=== PATIENT | female | born 1950 | race Caucasian/White ===

== ENCOUNTER 2024-07-26 10:33 | Emergency (ER) | payer OTHER, SELFPAY ==
[2024-07-26] VITALS (7 sets, daily range): BP systolic 118–165; BP diastolic 75–89; BMI 24.3
--- NOTE | 2024-07-26 11:30 | ED.GENMED ---
History of Present Illness
General
Chief Complaint: Heart Rate Problem
Source: patient
Time Seen by Provider: 07/26/24 11:15
History of Present Illness
History of Present Illness:
73yoF with no significant past medical history presenting with her for evaluation of malaise. Patient returned from a cruise to [facility] about 10 days ago. 2 days after returning home, she started to experience nausea,
vomiting, malaise, and a headache. She was seen by her PCP last week and had negative COVID testing. She was told that she likely had a viral illness. Her symptoms seemed to improve earlier this week but are now worse again. Last episode of
vomiting was 2 days ago. She continues to have a headache which she currently rates as a 5/10 in severity. Her main symptom is generalized malaise and fatigue. She has not been eating or drinking much due to her symptoms. She estimates that she
is lost about 9 pounds since her symptoms began. She was seen again by her PCP today. An EKG was performed in the office which reportedly showed atrial flutter and she was sent to the ED for evaluation. Patient denies any chest pain or shortness
of breath. No fevers throughout the duration of her symptoms.
Phy Exam
Physical Exam
Physical Exam:
Patient appears fatigued, non-toxic
General Physical Exam
General Presentation: well appearing and no apparent distress
General age: appears stated age
General Skin: warm and dry
General Habitus: normal
General Mental: alert
ENT Exam
ENT Exam: TM's normal, pharynx normal, neck supple and normocephalic
Additional ENT: No meningismus
Cardiovascular Exam
Cardiovascular Exam: tachycardia
Pulmonary Exam
Pulmonary Exam: lungs clear, no respiratory distress, no rales, no crackles, no rhonchi and no wheezing
Gastrointestinal Exam
Gastrointestinal Exam: non tender, soft and non distended
Cesar Coma Scale
Eye Opening: Spontaneous
Verbal Response: Oriented
Motor Response: Obeys Commands
GCS Total Score: 15
Skin Exam
Skin Exam: normal color and warm/dry
Psychiatric Exam
Psychiatric Exam: normal mood/affect
Course
Orders/Labs/Results
Orders:
Orders
07/26/24 10:34
EKG [Electrocardiogram (*1)] Urgent
Reason for Study: Atrial Flutter
EKG- Treatment ONCE
07/26/24 11:30
0.9% Sodium Chloride 1000 ml [Nss] 1,000 ml IV BOLUS
07/26/24 11:59
Complete Blood Count/With Diff Urgent
Comprehensive Metabolic Panel Urgent
Lyme Progressive Urgent
Magnesium Urgent
Monotest Urgent
Comment: LYME PROGRESSIVE & MONO ADDED ON BY FLOOR 2:50PM 07-26-24
TSH Reflex To Free T4 Urgent
Troponin I Urgent
Influenza A+B Rapid Molecular Urgent
ELBA Source: Nasal Swab
Specimen Description:
07/26/24 12:53
Urinalysis Reflex To Culture Urgent
Date Specimen was Collected: 07/26/24
Time Specimen was Collected: 12:46
07/26/24 13:30
CT Head W/o Iv Contrast Urgent
Comment:
Reason For Exam: Headache
CR Chest - 2 Views Urgent
Comment:
Reason For Exam: Fatigue
07/26/24 14:47
Acetaminophen 1000MG/100Ml [Ofirmev] 1,000 mg in 100 ml IV ONCE
Acetaminophen IV Indication:: ED Narcotic Naive Pt-ONCE
07/26/24 14:53
Add On- LAB Urgent
Comments:: specimen in lab; pt difficult stick.
Tests Added?: lyme progressive; mono
07/26/24 16:43
Dexamethasone [Decadron] 10 mg PO NOW STA
Abnormal Lab Results
07/26/24 07/26/24
11:59 12:53
WBC 14.2 H 10^3/uL
(4.8-10.8)
Plt Count 432 H 10^3/uL
(130-400)
Abs Immat Gran (auto) 0.1 H 10^3/uL
(0-0.05)
Absolute Neuts (auto) 11.5 H 10^3/uL
(1.4-6.5)
Absolute Monos (auto) 0.7 H 10^3/uL
(0.1-0.6)
Neutrophils % 80.9 H %
(42.2-75.2)
Lymphocytes % 13.0 L %
(20.5-51.1)
BUN 20 H mg/dl
(7-17)
Creatinine 0.5 L mg/dL
(0.6-1.0)
Glucose 119 H mg/dl
(70-99)
Total Bilirubin 2.0 H mg/dl
(0.2-1.3)
Urine Ketones 1+ A
(Negative)
Monoscreen Positive A
(Negative)
07/26/24 11:59
07/26/24 11:59
Vital Signs
Initial and Last Documented VS:
Initial Vital Signs
Temp Pulse Resp BP Pulse Ox
98.2 F 117 18 132/89 99
07/26/24 10:50 07/26/24 10:50 07/26/24 10:50 07/26/24 10:50 07/26/24 10:50
Last Documented Vital Signs
Temp Pulse Resp BP Pulse Ox
98.2 F 88 11 118/77 99
07/26/24 10:50 07/26/24 16:00 07/26/24 16:00 07/26/24 16:00 07/26/24 16:00
MDM/Problems Addressed
Differential Diagnosis Includes:
73yoF here with malaise, headaches, nausea/vomiting for >1 week since returning home from a cruise. Sent here by her PCP for concern for aflutter on an EKG. HR 117 in triage. Remainder of vitals stable. Patient appears fatigued but is nontoxic.
Exam reassuring. Differential diagnosis includes but is not limited to: Viral illness, pneumonia, dehydration, gastroenteritis, doubt pulmonary embolism and she has no respiratory symtoms and oxygen saturation is 99%
EKG from PCP's office reviewed. No aflutter seen. EKG shows sinus tachycardia. This was also reviewed with Dr. Luz who agrees. Sinus tachycardia on monitor during examination.
Initial ED plan: Check cardiac labs, magnesium, TSH, influenza test, UA. IV fluid bolus.
*EKG
Interpreted by ED Provider?: Yes
EKG Intrepretation Date: 07/26/24
Heart Rate: 117
Rate: tachycardiac
Rhythm: sinus
Martin: normal axis
Interval: normal interval
QRS Pattern: normal QRS
Ischemia: no ischemia
*Critical Care Note
Total Time (30-74mins, 75-104mins- exclusive of procedures): Not Applicable
Update Note
Update Note:
Labs reveal a leukocytosis with a WBC of 14. Total bilirubin 2.0, remainder of LFTs are normal. EKG shows sinus tachycardia and troponin WNL. Flu test negative. No signs of infection on UA. CXR, CT head, Lyme, and monotest added. CT head is negative
for acute findings and no infiltrates seen on CXR. Monospot is positive which is likely cause of her symptoms. Heart rate improved with fluids. Patient stable for discharge. Supportive care discussed. Advised f/u with PCP and ED return precautions
discussed. She expressed understanding and is agreeable to plan. She was discharged in stable condition.
ED Attending Note
-
Portions of this chart may have been created with voice recognition software.� Occasional wrong word or��sound alike� substitutions may have occurred due to the inherent limitations of voice recognition software.
Discharge Plan
Departure
Patient Disposition: Home (Routine Discharge)
Date of Disposition: 07/26/24
Time of Disposition: 16:29
Patient with high blood pressure during this ER visit?: No
Discharge Problem:
Mononucleosis
Instructions: Mononucleosis
Prescriptions:
New
ondansetron 4 mg tablet,disintegrating
4 mg PO Q6H PRN (Reason: nausea and vomiting) Qty: 20 0RF
Referrals:
Sophia Quintero, DO [Family Provider] -
Stand Alone Forms: Return to Work
Activity Restrictions/Additional Instructions:
Take Zofran as needed for nausea. Drink plenty of fluids and rest.
Please follow-up with your family doctor. Return to the ER with any new or worsening symptoms.
Interventions
Interventions:
*Risk Screen - Suicide Last Done: 07/26/24 10:52
*General Assessment Last Done: 07/26/24 10:53
*Neglect/Abuse Screening Last Done: 07/26/24 10:52
*ED COVID-19 Vaccine History Last Done: 07/26/24 10:52
*Nursing Disposition Last Done: 07/26/24 16:55
ED- Cardiac Assessment Last Done: 07/26/24 12:00
ED- Pulmonary Assessment Last Done: 07/26/24 12:00
Discharge Date and Time
Discharge Date/Time: 07/26/24 16:56
Print Language: ETHIOPIAN
[2024-07-26] MEDS: NSS 1000 IV (11:56)
[2024-07-26 12:10] LABS: % Basophils 0.3 % (0-2); % Eosinophils 0.1 % (0-6); % Immature Granulocytes 0.5 % (0-0.5); % Monocytes 5.2 % (1.7-9.3); % Neutrophils 80.9 % (42.2-75.2); Absolute Immature Granulocytes 0.1 10^3/uL (0-0.05); Absolute Lymphocytes 1.8 10^3/uL (1.2-3.4); Absolute Monocytes 0.7 10^3/uL (0.1-0.6); Absolute Neutrophils 11.5 10^3/uL (1.4-6.5); Hematocrit 43.8 % (37.0-47.0); Hemoglobin 15.5 g/dL (12.0-16.0); Mean Corp Hgb Conc. 35.4 g/dL (33.0-37.0); Mean Corpuscular Hgb 29.1 pg (27.0-31.0); Mean Corpuscular Volume 82.2 fL (81.0-99.0); Mean Platelet Volume 9.2 fL (7.4-10.4); Nucleated Red Blood Cells % 0 %; Platelet Count 432 10^3/uL (130-400); Red Blood Cell Count 5.33 10^6/uL (4.20-5.40); Red Cell Dist. Width 12.1 % (11.5-14.5); White Blood Cell Count 14.2 10^3/uL (4.8-10.8)
[2024-07-26 12:23] LABS: ALT (SGPT) 31 U/L (0-35); AST (SGOT) 30 U/L (14-36); Albumin 4.9 g/dl (3.5-5.0); Alkaline Phosphatase 101 U/L (38-126); Blood Urea Nitrogen 20 mg/dl (7-17); Calcium 10.2 mg/dl (8.4-10.2); Carbon Dioxide 24 mmol/L (22-30); Chloride 98 mmol/L (98-107); Estimated Creatinine Clearance 66 ml/min; Glucose 119 mg/dl (70-99); Magnesium 1.7 mg/dl (1.6-2.3); Potassium 3.5 mmol/L (3.5-5.1); Sodium 137 mmol/L (135-145); Total Protein 7.7 g/dl (6.3-8.2); eGFR > 60.00
[2024-07-26 12:35] LABS: Troponin I < 0.012 ng/ml
[2024-07-26 12:54] LABS: TSH Reflex To Free T4 0.84 uIU/ml (0.47-4.68)
[2024-07-26 13:08] LABS: Urine Albumin Negative (Neg - Trace); Urine Bilirubin Negative (Negative); Urine Character Clear (Clear); Urine Color Yellow; Urine Glucose Negative (Negative); Urine Ketone 1+ (Negative); Urine Leukocyte Negative (Negative); Urine Nitrite Negative (Negative); Urine Occult Blood Negative (Negative); Urine Urobilinogen Negative (Neg - 1+)
[2024-07-26] MEDS: OFIRMEV 100 IV (15:17)
[2024-07-26 16:13] LABS: Monotest Positive (Negative)
[2024-07-26] MEDS: DECADRON 10 MG PO (16:46)
[2024-07-27 15:02] LABS: Lyme Antibody Screen, EIA Negative (Negative)
== END 2024-07-26 16:56 | disposition home or self-care (01) ==
LOC: EMR 10:33
PROVIDERS: Physician Assistant; EMERGENCY PHYSICIAN Emergency Medicine; FAMILY PHYSICIAN Family Medicine
DX: B27.90 Infectious mononucleosis, unspecified without complication (principal); R11.2 Nausea with vomiting, unspecified; R53.81 Other malaise; R51.9 Headache, unspecified; I48.92 Unspecified atrial flutter
CPT/HCPCS: 99285; 96374; 96361; 70450; 71046; 80053; 81003; 83735; 84443; 84484; 85025; 86308; 86618; 87502; 93005

== ENCOUNTER → 2024-08-04 08:14 | Outpatient (REF) | payer OTHER, SELFPAY | LOC: RAD 08:14 | PROVIDERS: ATTENDING PHYSICIAN Family Medicine | DX: R63.4 Abnormal weight loss (principal); R00.0 Tachycardia, unspecified; R53.81 Other malaise; R53.83 Other fatigue | CPT/HCPCS: 76700 ==

== ENCOUNTER → 2025-02-16 09:11 | Outpatient (REF) | payer OTHER, SELFPAY | LOC: HWWDC 09:11 | PROVIDERS: ATTENDING PHYSICIAN Family Medicine | DX: Z12.31 Encounter for screening mammogram for malignant neoplasm of breast (principal) | CPT/HCPCS: 77063; 77067 ==